=== PATIENT | female | born 1990 | race Caucasian/White ===

== ENCOUNTER 2019-05-09 15:40 | Emergency (ER) | payer OTHER, SELFPAY ==
[2019-05-09 16:03] VITALS: BP 123/87; PULSE 71; RESP 18; TEMP 37.1; O2SAT 100
--- NOTE | 2019-05-09 16:59 | DI.CT.S_ITS ---
PROCEDURE: CT CERVICAL SPINE WO CON INDICATIONS: pain TECHNIQUE: Noncontrast 3 mm thick sections acquired from the skull base to the T4 level. Sagittal and coronal reformats were then constructed. For radiation dose reduction, the following was used: automated exposure control, adjustment of mA and/or kV according to patient size. COMPARISON: None. FINDINGS: Image quality: Diagnostic. Bones: The craniocervical and atlantoaxial joints are well-maintained. The odontoid is intact. The vertebral body heights and prevertebral soft tissues are within normal limits throughout the cervical spine without evidence to suggest acute compression fracture. No other fractures are evident within the cervical spine. The bone mineralization is within normal limits. Mild straightening of the normal cervical lordosis probably is positional. Muscle spasm may also have this appearance. There is no spondylolisthesis. No significant degenerative changes of the cervical spine are evident. Soft tissues: No prevertebral soft tissue swelling. The imaged lung apices are clear. Imaged portions of the mediastinum are unremarkable. Otherwise, the remainder of the imaged soft tissues of the neck are within normal limits. IMPRESSION: Unremarkable cervical spine CT. No fractures. Dictated by: Ronald Marcelino M.D. on 05/09/2019 at 16:30 Approved by: Ronald Marcelino M.D. on 05/09/2019 at 16:31
[2019-05-09 18:45] VITALS: BP 121/84; PULSE 67; RESP 15; O2SAT 100
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
== END 2019-05-09 19:26 | disposition home or self-care (01) ==
PROVIDERS: Emergency Provider Nurse Practitioner Family
DX: S13.4XXA Sprain of ligaments of cervical spine, initial encounter (principal); V49.40XA Driver injured in collision with unspecified motor vehicles in traffic accident, initial encounter
CPT/HCPCS: 72125; 81025; 99282; 99284